=== PATIENT | female | born 1990 | race African-American/Black ===

== ENCOUNTER 2019-01-01 10:25 | Observation (INO) | payer MEDICAID ==
[~2019-01-01 10:25] MED LIST: PRENTAB28 PO
== END 2019-01-01 11:20 | disposition home or self-care (01) | DRG 566 ==
LOC: LDRP 10:25
PROVIDERS: ADMIT Specialist; ATTEND Specialist
DX: O35.8XX0 Maternal care for other (suspected) fetal abnormality and damage, not applicable or unspecified (principal); Z3A.31 31 weeks gestation of pregnancy; Z87.891 Personal history of nicotine dependence
CPT/HCPCS: 59025; 81002; G0378

== ENCOUNTER 2019-01-08 10:20 | Observation (INO) | payer MEDICAID | END 2019-01-08 11:17 | disposition home or self-care (01) | DRG 566 | LOC: LDRP 10:20 | PROVIDERS: ADMIT Specialist; ATTEND Specialist | DX: O99.89 Other specified diseases and conditions complicating pregnancy, childbirth and the puerperium (principal); N13.30 Unspecified hydronephrosis; Z3A.32 32 weeks gestation of pregnancy; Z87.891 Personal history of nicotine dependence | CPT/HCPCS: 59025; 81002; G0378 ==

== ENCOUNTER 2019-01-15 09:38 | Observation (INO) | payer MEDICAID | END 2019-01-15 11:05 | disposition home or self-care (01) | DRG 566 | LOC: LDRP 09:38 | PROVIDERS: ADMIT Specialist; ATTEND Specialist | DX: O99.89 Other specified diseases and conditions complicating pregnancy, childbirth and the puerperium (principal); N13.30 Unspecified hydronephrosis; Z3A.33 33 weeks gestation of pregnancy; Z87.891 Personal history of nicotine dependence | CPT/HCPCS: 76818; G0378; 59025; 81002 ==

== ENCOUNTER 2019-01-22 09:58 | Observation (INO) | payer MEDICAID | END 2019-01-22 11:10 | disposition home or self-care (01) | DRG 566 | LOC: LDRP 09:58 | PROVIDERS: ADMIT Specialist; ATTEND Specialist | DX: O99.89 Other specified diseases and conditions complicating pregnancy, childbirth and the puerperium (principal); N13.30 Unspecified hydronephrosis; Z3A.34 34 weeks gestation of pregnancy; Z87.891 Personal history of nicotine dependence | CPT/HCPCS: 76818; G0378; 59025; 81002 ==

== ENCOUNTER 2019-01-29 10:31 | Observation (INO) | payer MEDICAID | END 2019-01-29 12:00 | disposition home or self-care (01) | DRG 566 | LOC: LDRP 10:31 | PROVIDERS: ADMIT Specialist; ATTEND Specialist | DX: O99.89 Other specified diseases and conditions complicating pregnancy, childbirth and the puerperium (principal); N13.30 Unspecified hydronephrosis; Z3A.35 35 weeks gestation of pregnancy; Z87.891 Personal history of nicotine dependence | CPT/HCPCS: 76818; G0378; 59025; 81002 ==

== ENCOUNTER 2019-02-06 10:33 | Observation (INO) | payer MEDICAID | END 2019-02-06 12:25 | disposition home or self-care (01) | DRG 566 | LOC: LDRP 10:33 | PROVIDERS: ADMIT Obstetrics & Gynecology; ATTEND Obstetrics & Gynecology | DX: O40.3XX0 Polyhydramnios, third trimester, not applicable or unspecified (principal); O62.9 Abnormality of forces of labor, unspecified; O99.89 Other specified diseases and conditions complicating pregnancy, childbirth and the puerperium; N13.30 Unspecified hydronephrosis; Z3A.36 36 weeks gestation of pregnancy; Z87.891 Personal history of nicotine dependence | CPT/HCPCS: 59025; 76818; 81002; G0378 ==

== ENCOUNTER 2019-02-11 20:00 | Observation (INO) | payer MEDICAID ==
[~2019-02-11] VITALS: Ht 165.1 cm; Wt 72.6 kg
== END 2019-02-11 21:10 | disposition home or self-care (01) | DRG 566 ==
LOC: LDRP 20:00
PROVIDERS: ADMIT Obstetrics & Gynecology; ATTEND Obstetrics & Gynecology
DX: O62.9 Abnormality of forces of labor, unspecified (principal); Z3A.37 37 weeks gestation of pregnancy; Z87.891 Personal history of nicotine dependence
CPT/HCPCS: 59025; 81002; G0378

== ENCOUNTER 2019-03-06 11:28 | Observation (INO) | payer MEDICAID ==
[2019-03-06 14:16] LABS: Alcohol, Urine < 3.0 mg/dL (0-5); Amphetamine Screen, Urine NEGATIVE (NEGATIVE); Barbiturate Scree,Urine NEGATIVE (NEGATIVE); Benzodiazephine Screen, Urine NEGATIVE (NEGATIVE); Cannabinoid Screen, Urine POSITIVE (NEGATIVE); Cocaine Screen, Urine NEGATIVE (NEGATIVE); Opiate Scree,Urine NEGATIVE (NEGATIVE); Phencyclidine Screen, Urine NEGATIVE (NEGATIVE)
== END 2019-03-06 13:25 | disposition home or self-care (01) | DRG 566 ==
LOC: LDRP 11:28
PROVIDERS: ADMIT Specialist; ATTEND Specialist
DX: O48.0 Post-term pregnancy (principal); O26.893 Other specified pregnancy related conditions, third trimester; M54.9 Dorsalgia, unspecified; R10.9 Unspecified abdominal pain; Z3A.40 40 weeks gestation of pregnancy; Z87.891 Personal history of nicotine dependence
CPT/HCPCS: 59025; 76818; 80307; 81002; G0378

== ENCOUNTER 2019-03-08 14:09 | Observation (INO) | payer MEDICAID | END 2019-03-08 14:35 | disposition home or self-care (01) | DRG 566 | LOC: LDRP 14:09 | PROVIDERS: ADMIT Obstetrics & Gynecology; ATTEND Obstetrics & Gynecology | DX: O48.0 Post-term pregnancy (principal); Z3A.40 40 weeks gestation of pregnancy | CPT/HCPCS: 59025; 76818; 81002; G0378 ==

== ENCOUNTER 2019-03-10 12:25 | Observation (INO) | payer MEDICAID | END 2019-03-10 13:25 | disposition home or self-care (01) | DRG 566 | LOC: LDRP 12:25 → INTOOBSV 12:25 | PROVIDERS: ADMIT Specialist; ATTEND Specialist | DX: O48.0 Post-term pregnancy (principal); Z3A.40 40 weeks gestation of pregnancy | CPT/HCPCS: 59025; 76818; 81002; G0378 ==

== ENCOUNTER 2020-03-04 10:45 | Observation (INO) | payer MEDICAID | END 2020-03-04 13:00 | disposition home or self-care (01) | DRG 566 | LOC: UNDOADMOB 10:45 → LDRP 10:45 | PROVIDERS: ADMIT Obstetrics & Gynecology; ATTEND Obstetrics & Gynecology | DX: O26.892 Other specified pregnancy related conditions, second trimester (principal); Z3A.25 25 weeks gestation of pregnancy | CPT/HCPCS: 76805; G0378 ==

== ENCOUNTER 2020-05-16 14:22 | Inpatient (IN) | payer MEDICAID ==
[~2020-05-16] VITALS: Ht 165.1 cm; Wt 72.1 kg
[2020-05-16] MEDS ORDERED: LACT. RINGERS/OXYTOCIN 20UNITS 1,000 ML IV SCH (14:55)
[2020-05-16] MEDS ORDERED: LIDOCAINE 1% (LOCAL ANESTH.) PF 5ml SDV IJ PRN (15:00)
[2020-05-16] MEDS ORDERED: PHISODERM TOP SOLN 240ML BTL TOP PRN (15:00)
[2020-05-16] MEDS ORDERED: DERMOPLAST 60ML BOTTLE TOP PRN (15:00)
[2020-05-16] MEDS ORDERED: CARBOPROST TROMETHAMINE 250 MCG/1ML VIAL IM PRN (15:00)
[2020-05-16] MEDS ORDERED: WITCH HAZEL-GLYCERIN PAD TOP PRN (15:00)
[2020-05-16] MEDS ORDERED: METHYLERGONOVINE MALEATE 0.2 MG/ML AMP IM PRN (15:00)
[2020-05-16] MEDS ORDERED: ceFAZolin 1GM/50ML 50 ML IV ONE (15:10)
[2020-05-16] MEDS: LACTATED RINGER'S 1,000 ML IV SCH ×2 (15:13→23:14)
[2020-05-16] MEDS: BETAMETHASONE ACET (6MG/ML) 5ML VIAL IM SCH (15:13)
[2020-05-16] MEDS: ceFAZolin 1GM/50ML 50 ML IV SCH ×2 (15:13→23:18)
[2020-05-16] MEDS ORDERED: LIDOCAINE 2%HCL (LOCAL ANESTH.) INJ 10ml MDV IJ PRN (15:15)
[2020-05-16 15:24] LABS: Basophils # (auto) 0 10 ^3/uL (0-0.2); Basophils % (auto) 0.2 % (0.0-2.0); Eosinophils # (auto) 0 10 ^3/uL (0-0.8); Eosinophils % (auto) 0.5 % (0.0-7.0); Hematocrit 35.6 % (36.0-46.0); Hemoglobin 11.6 g/dL (12.2-16.2); Lymphocytes # (auto) 1.5 10 ^3/uL (0.4-5.4); Mean Corpuscular Hemoglobin 30.7 pg (28.0-32.0); Mean Corpuscular Hgb Conc. 32.5 g/dL (32.0-36.0); Mean Corpuscular Volume 94.3 fL (80.0-100.0); Monocytes # (auto) 0.6 10 ^3/uL (0-1.3); Monocytes % (auto) 7.3 % (0.0-12.0); Platelet Count (auto) 255 10^3/uL (140-450); Red Blood Cells 3.77 10^6/uL (4.0-5.20); Red Cell Distribution Width 12.7 % (11.8-14.3); White Blood Cell 8.1 10^3/uL (4.4-10.8)
[2020-05-16 15:39] LABS: INR 0.96 (0.9-1.15); Partial Thromboplastin Time 29.1 sec (23.64-32.05)
[2020-05-16 15:40] LABS: Albumin 2.9 g/dL (3.4-5.0); Calcium 8.7 mg/dL (8.5-10.1); Potassium 3.6 mmol/L (3.5-5.1)
[2020-05-16 15:43] LABS: BUN/Creatinine Ratio 6.4; Bilirubin, Total 0.5 mg/dL (0.2-1.0)
[2020-05-16 17:23] LABS: Urine WBC None Seen /hpf (0 - 5)
[2020-05-16 17:33] LABS: Urine Bacteria NONE SEEN /hpf (None Seen); Urine Blood Negative /uL (Negative); Urine Mucus FEW (None Seen); Urine Specific Gravity 1.015 (1.001-1.035)
[2020-05-16 17:48] LABS: Alcohol, Urine < 3.0 mg/dL (0-10); Barbiturate Scree,Urine NEGATIVE (NEGATIVE); Benzodiazephine Screen, Urine NEGATIVE (NEGATIVE); Cannabinoid Screen, Urine POSITIVE (NEGATIVE); Cocaine Screen, Urine NEGATIVE (NEGATIVE); Opiate Scree,Urine NEGATIVE (NEGATIVE); Phencyclidine Screen, Urine NEGATIVE (NEGATIVE)
[2020-05-16 17:55] LABS: Amphetamine Screen, Urine NEGATIVE (NEGATIVE)
[2020-05-17] MEDS: BETAMETHASONE ACET (6MG/ML) 5ML VIAL IM SCH (03:01)
[2020-05-17] MEDS: LACTATED RINGER'S 1,000 ML IV SCH ×3 (04:10→23:17)
[2020-05-17] MEDS: ceFAZolin 1GM/50ML 50 ML IV SCH ×2 (07:01→15:45)
[2020-05-17 07:09] LABS: RPR Non Reactive (Non Reactive); Rubella Antibodies, IgG 3.44 index (Immune >0.99)
[2020-05-17] MEDS: BUTORPHANOL TARTRATE 2 MG/1 ML VIAL IV PRN (13:16)
[2020-05-17] MEDS ORDERED: ceFAZolin 1GM/50ML 50 ML IV SCH (23:30)
[2020-05-18] MEDS: ceFAZolin 1GM/50ML 50 ML IV SCH ×2 (07:06→14:36)
[2020-05-18 08:36] LABS: Basophils # (auto) 0 10 ^3/uL (0-0.2); Eosinophils # (auto) 0 10 ^3/uL (0-0.8); Hematocrit 28.2 % (36.0-46.0); Hemoglobin 9.2 g/dL (12.2-16.2); Lymphocytes # (auto) 1.8 10 ^3/uL (0.4-5.4); Lymphocytes % (auto) 13.1 % (10.0-50.0); Mean Corpuscular Hemoglobin 30.5 pg (28.0-32.0); Mean Corpuscular Hgb Conc. 32.6 g/dL (32.0-36.0); Mean Corpuscular Volume 93.7 fL (80.0-100.0); Monocytes # (auto) 0.9 10 ^3/uL (0-1.3); Monocytes % (auto) 6.9 % (0.0-12.0); Neutrophils # (auto) 10.9 10 ^3/uL (1.6-8.6); Nucleated Red Blood Cells % 0.1 %; Platelet Count (auto) 232 10^3/uL (140-450); Red Blood Cells 3.01 10^6/uL (4.0-5.20); Red Cell Distribution Width 13.2 % (11.8-14.3); White Blood Cell 13.7 10^3/uL (4.4-10.8)
[2020-05-18 08:49] LABS: INR 0.96 (0.9-1.15); Partial Thromboplastin Time 27.3 sec (23.64-32.05)
[2020-05-18 08:51] LABS: Albumin 2.4 g/dL (3.4-5.0); BUN/Creatinine Ratio 8.2; Calcium 8.1 mg/dL (8.5-10.1); Potassium 3.2 mmol/L (3.5-5.1)
[2020-05-18 09:10] LABS: Bilirubin, Total 0.8 mg/dL (0.2-1.0); Total Protein 5.6 g/dL (6.4-8.2)
[2020-05-18] MEDS: miSOPROStol 50 MCG per PRE-CUT 1/2 TAB PO PRN ×2 (09:23→13:25)
[2020-05-18] MEDS: LACTATED RINGER'S 1,000 ML IV SCH ×2 (11:36→15:23)
[2020-05-18] MEDS ORDERED: LACT. RINGERS/OXYTOCIN 20UNITS 1,000 ML IV SCH (15:43)
[2020-05-18] MEDS ORDERED: LACT. RINGERS/OXYTOCIN 20UNITS 1,000 ML IV ONE (15:43)
[2020-05-18] MEDS: BUTORPHANOL TARTRATE 2 MG/1 ML VIAL IV PRN (15:50)
[2020-05-18] MEDS ORDERED: LACT. RINGERS/OXYTOCIN 20UNITS 500 ML IV PRN ×2 (16:15→17:00)
[2020-05-18] MEDS ORDERED: LACT. RINGERS/OXYTOCIN 20UNITS 1,000 ML IV PRN ×2 (16:15→17:00)
[2020-05-18] MEDS ORDERED: ROPIVACAINE HCL 100 ML EPI SCH (16:30)
[2020-05-18] MEDS ORDERED: LACTATED RINGER'S 1,000 ML IV ONE (16:30)
[2020-05-18] MEDS ORDERED: ePHEDrine SULFATE 50 MG/ML AMP IV ONE (16:30)
[2020-05-18] MEDS ORDERED: ROPIVACAINE HCL 100 ML ONE (16:53)
[2020-05-18] MEDS ORDERED: ePHEDrine SULFATE 50 MG/ML AMP ONE (16:53)
[2020-05-18] MEDS ORDERED: PROMETHAZINE HCL 25 MG/ML 1ML IV PRN (18:30)
[2020-05-18] MEDS ORDERED: OXYTOCIN 10UNIT/ML 1ML VIAL IM ONE (20:24)
[2020-05-18] MEDS ORDERED: OXYTOCIN 10UNIT/ML 1ML VIAL ONE (20:26)
--- NOTE | 2020-05-18 20:45 | NUR ---
Teaching: Reviewed information in New Beginnings booklet with patient. Discussed benefits of and risks associated with not . Discussed different positions, proper latch, feeding cues, and baby-led . Provided information of medication side effects related to . All questions and concerns addressed at this time. Patient verbalized understanding of information.
--- NOTE | 2020-05-18 21:30 | NUR ---
Ambulation: Patient OOB with standby assistance by RN. Patient ambulated to bathroom with steady gait. Patient able to void 600ml without difficulty. [facility] teaching provided with returned demonstration by patient. Clean gown provided and bed linen changed. Patient ambulated back to bed with steady gait and no distress noted.
[2020-05-18] MEDS: IBUPROFEN 600 MG TAB PO PRN (23:10)
[2020-05-18 23:30] VITALS: BP 121/79
[2020-05-19] MEDS: ACETAMINOPHEN 325 MG TAB PO PRN ×2 (02:00→17:52)
[2020-05-19] MEDS: IBUPROFEN 600 MG TAB PO PRN ×2 (02:36→15:28)
[2020-05-19 03:28] VITALS: BP 117/67
--- NOTE | 2020-05-19 06:05 | NUR ---
Bottle-feeding Education: Patient encouraged to breastfeed. Benefits of and the risk of providing formula to was discussed. Patient verbalized understanding of the benefits and is aware of risk and insists on bottle-feeding. Formula provided and instruction on formula preparation from the New Beginning booklet reviewed with patient.
--- NOTE | 2020-05-19 06:15 | NUR ---
Report received from Lizbet SINGH RN on stable pt. Assumed care. Addendum: 05/19/20 at 0758 by Ivelisse Coleman RN Amended: Links added.
[2020-05-19 06:45] VITALS: BP 93/55
--- NOTE | 2020-05-19 10:12 | NUR ---
Saba from Case management to see pt for limited PNC and + UDS, Saba informed that awaiting 's UDS results, Saba asks to be called with 's UDS results to open CPS case , if needed.
[2020-05-19 11:30] VITALS: BP 115/56
[2020-05-19 16:00] VITALS: BP 100/71
--- NOTE | 2020-05-19 18:30 | NUR ---
Report given to Teresa SINGH RN on stable pt. Relinquished care. Addendum: 05/19/20 at 1834 by Ivelisse Coleman RN Amended: Links added.
[2020-05-19 19:00] VITALS: BP 106/53
[2020-05-19 23:00] VITALS: BP 106/55
[2020-05-20] MEDS ORDERED: TETANUS-DIPTH-ACEL PERTUSSIS 0.5ML SYR Tdap IM ONE (00:55)
[2020-05-20] MEDS: IBUPROFEN 600 MG TAB PO PRN ×2 (01:05→08:46)
[2020-05-20 03:00] VITALS: BP 120/75
[2020-05-20 07:29] VITALS: BP 120/82
--- NOTE | 2020-05-20 07:37 | NUR ---
thad griffin at bedside at 0600 nam Addendum: 05/20/20 at 0737 by Phil Leon RN Amended: Links added.
--- NOTE | 2020-05-20 10:17 | NUR ---
TALKED TO SOCIAL [facility]ICE KORI AND SHE STATES SHE IS CALLING CPS FOR POSITIVE THC MOTHER AND BABY AFTER MEETING AND WILL CHART . PATIENT CAN BE DISCHARGED FROM [facility].
[2020-05-20 10:38] VITALS: BP 123/65
--- NOTE | 2020-05-20 11:20 | NUR ---
REVIEWED VITALS Addendum: 05/20/20 at 1125 by Phil Leon RN Amended: Links added.
--- NOTE | 2020-05-20 12:25 | NUR ---
Assessment Patient is a 29-year old female who is alert and oriented. Social Service consult regarding limited care, positive THC this visit, patient states she is currently an deb day THC user and everyday cigarette smoker. Baby drug test was positive for THC. Patient stated she did not consume THC every day and she would only consume when she had back pain or nausea. Patient stated she did take during her . Patient states she has 4 younger children and her oldest lives with her father. Patient resides with her mother. Patient will bottle feed and breast feed. Pt has transportation home upon discharge. Due to baby being positive for THC, CPS will be contact. Spoke to Lizet with CPS. CPS Case Number is [id number]. ANGELINA Ramsey was informed.
--- NOTE | 2020-05-20 13:25 | NUR ---
Discharge: Patient taken to vehicle via ambulation with all personal belongings, accompanied by staff and family member. No distress noted at time of departure, no adverse changes in status since initial assessment.
--- NOTE | 2020-05-20 14:22 | NUR ---
Discharge: Discharge instructions given as ordered. Pt encouraged to follow up with [facility] as instructed. All questions and concerns addressed. Patient verbalized understanding. Medication reconciliation completed and copy given to patient. Patient encouraged to prepare to depart unit.
== END 2020-05-20 14:25 | disposition home or self-care (01) | DRG 560 ==
LOC: LDRP 14:22 → OBSVTOIN 14:54 → LDRP 14:57
PROVIDERS: ADMIT Obstetrics & Gynecology; ATTEND Obstetrics & Gynecology
PROC: 10E0XZZ Delivery of Products of Conception, External Approach (ICD-10-PCS; principal; 2020-05-18)
PROC: 3E0P7VZ Introduction of Hormone into Female Reproductive, Via Natural or Artificial Opening (ICD-10-PCS; 2020-05-18)
PROC: 3E0234Z Introduction of Serum, Toxoid and Vaccine into Muscle, Percutaneous Approach (ICD-10-PCS; 2020-05-20)
DX: O42.913 Preterm premature rupture of membranes, unspecified as to length of time between rupture and onset of labor, third trimester (principal); Z37.0 Single live birth; O99.334 Smoking (tobacco) complicating childbirth; F17.210 Nicotine dependence, cigarettes, uncomplicated; Z91.19 Patient's noncompliance with other medical treatment and regimen; Z91.040 Latex allergy status; Z3A.36 36 weeks gestation of pregnancy; Z23 Encounter for immunization
CPT/HCPCS: 36415; 59025; 59409; 76805; 76818; 80053; 80307; 81001; 84112; 85025; 85610; 85730; 86592; 86703; 86762; 86850; 86900; 86901; 87340; 90715; 94760; 96360; 96361; 96365; 96366; 96372; 96374; G0378; J0690; J2590